=== PATIENT | male | born 1955 | race Caucasian/White ===

== ENCOUNTER 2018-12-31 09:44 | Outpatient (REF) | payer BC, SELFPAY ==
[2018-12-31 21:47] LABS: Absolute Basophil Count 0.02 k/cumm (0.0-0.2); Absolute Eosinophil Count 0.09 k/cumm (0.0-0.7); Absolute Lymphocyte Count 1.05 k/cumm (1.2-3.4); Absolute Monocyte Count 0.69 k/cumm (0.11-0.7); Absolute Neutrophil Count 3.96 k/cumm (1.2-6.7); Basophils % 0.3; Eosinophils % 1.5; HCT 42.8 % (40.0-50.0); HGB 14.6 g/dL (13.5-17.5); Lymphocytes % 18.1; Mean Corp. HGB Concentration 34.1 g/dL (32.0-36.0); Mean Corpuscular Volume 93.9 fL (80-95); Mean Platelet Volume 10.7 fL (8.0-11.0); Monocytes % 11.9; Neutrophils % 68.2; Platelet Count 269 x1000/uL (130-400); RBC 4.56 m/cumm (4.50-6.00); RBC Distribution Width 12.5 % (11.8-14.1); White Blood Cell Count 5.81 k/cumm (4.4-10.8)
[2018-12-31 22:14] LABS: ALT 38 U/L (12-78); AST 33 U/L (15-37); Albumin 3.8 g/dL (3.4-5.0); Alkaline Phosphatase 82 U/L (46-116); Anion Gap 9.6 mmol/L (3-11); BUN 14 mg/dL (7-18); Bilirubin, Total 0.5 mg/dL (0.2-1.0); CO2 25.4 mmol/L (21.0-32.0); CREATININE 0.91 mg/dL (0.70-1.30); Calcium 9.6 mg/dL (8.5-10.1); Chloride 104 mmol/L (98-107); Cholesterol 205 mg/dL (50-200); Glucose 93 mg/dL (70-100); HDL Cholesterol 48 mg/dL (40-60); LDL CHOLESTEROL 132 mg/dL (<100); Potassium 4.3 mmol/L (3.5-5.1); Sodium 139 mmol/L (136-145); TSH (W/Ref FT4) 1.76 uIU/mL (0.358-3.74); Total Protein 6.6 g/dL (6.4-8.2); Triglyceride 104 mg/dL (30-150)
== END 2018-12-31 10:04 ==
LOC: NCHCN 09:44
PROVIDERS: PCP Family Medicine; Visit Provider Family Medicine
DX: R10.33 Periumbilical pain (principal); Z00.00 Encounter for general adult medical examination without abnormal findings; Z12.5 Encounter for screening for malignant neoplasm of prostate; Z13.29 Encounter for screening for other suspected endocrine disorder; Z80.42 Family history of malignant neoplasm of prostate
CPT/HCPCS: 80053; 80061; 83721; 84153; 84443; 85025

== ENCOUNTER 2019-05-25 08:52 | Outpatient (REF) | payer BC, SELFPAY ==
[2019-05-25 22:23] LABS: Calculated LDL 110 mg/dL; Cholesterol 172 mg/dL (50-200); HDL Cholesterol 42 mg/dL (40-60); Triglyceride 100 mg/dL (30-150)
== END 2019-05-25 09:12 ==
LOC: NCHCN 08:52
PROVIDERS: PCP Family Medicine; Visit Provider Family Medicine
DX: E78.9 Disorder of lipoprotein metabolism, unspecified (principal); Z14.8 Genetic carrier of other disease
CPT/HCPCS: 80061

== ENCOUNTER 2020-01-05 08:55 | Outpatient (REF) | payer BC, SELFPAY ==
[2020-01-05 20:53] LABS: ALT 28 U/L (16-63); AST 24 U/L (15-37); Albumin 3.8 g/dL (3.4-5.0); Alkaline Phosphatase 79 U/L (46-116); Anion Gap 2.7 mmol/L (3-11); BUN 15 mg/dL (7-18); Bilirubin, Total 0.5 mg/dL (0.2-1.0); CO2 31.3 mmol/L (21.0-32.0); CREATININE 1.07 mg/dL (0.70-1.30); Calcium 9.7 mg/dL (8.5-10.1); Chloride 105 mmol/L (98-107); Glucose 100 mg/dL (74-106); Potassium 4.1 mmol/L (3.5-5.1); Sodium 139 mmol/L (136-145); Total Protein 6.6 g/dL (6.4-8.2)
[2020-01-05 21:29] LABS: Calculated LDL 116 mg/dL (<100); Cholesterol 186 mg/dL (<200); HDL Cholesterol 53 mg/dL (40-60); Triglyceride 86 mg/dL (<150)
[2020-01-07 12:15] LABS: PSA, Screening 1.8 ng/mL (0.0-4.5)
== END 2020-01-05 09:15 ==
LOC: NCHCN 08:55
PROVIDERS: PCP Family Medicine; Visit Provider Nurse Practitioner Family
DX: Z00.00 Encounter for general adult medical examination without abnormal findings (principal); E78.9 Disorder of lipoprotein metabolism, unspecified; Z12.5 Encounter for screening for malignant neoplasm of prostate
CPT/HCPCS: 80053; 80061; 84153

== ENCOUNTER 2021-01-17 08:59 | Outpatient (REF) | payer BC, SELFPAY ==
[2021-01-17 13:30] LABS: HCT 44.1 % (40.0-50.0); HGB 15.1 g/dL (13.5-17.5); MCH 32.1 pg (27.0-33.0); MCHC 34.2 % (32.0-36.0); MCV 93.6 fL (80-95); MPV 10.8 fL (8.0-11.0); Platelet Count 268 10^3/uL (130-400); RBC 4.71 10^6/uL (4.36-5.78); RDW 12.3 % (11.8-14.1); RDW-SD 42.6 fL; WBC 4.97 10^3/uL (4.4-10.8)
[2021-01-17 13:36] LABS: ALT 33 U/L (16-63); AST 23 U/L (15-37); Albumin 3.8 g/dL (3.4-5.0); Alkaline Phosphatase 85 U/L (46-116); Anion Gap 9.3 mmol/L (3-11); BUN 17 mg/dL (7-18); Bilirubin, Total 0.4 mg/dL (0.2-1.0); CO2 26.7 mmol/L (21.0-32.0); CREATININE 1.2 mg/dL (0.70-1.30); Calcium 9.7 mg/dL (8.5-10.1); Calculated LDL 137 mg/dL (<100); Chloride 106 mmol/L (98-107); Cholesterol 204 mg/dL (<200); Glucose 105 mg/dL (74-106); HDL Cholesterol 50 mg/dL (40-60); Potassium 4.3 mmol/L (3.5-5.1); Sodium 142 mmol/L (136-145); Total Protein 6.6 g/dL (6.4-8.2); Triglyceride 85 mg/dL (<150)
[2021-01-17 22:43] LABS: PSA, Screening 1.9 ng/mL (0.0-4.5)
[2021-01-18 11:16] LABS: HIV-1/2 Ag & Ab Screen Negative (Negative)
[2021-01-18 13:25] LABS: Hepatitis C Ab w Rflx HCV PCR Negative (Negative)
== END 2021-01-17 09:00 | disposition home or self-care (01) ==
LOC: NCHCN 08:59
PROVIDERS: PCP Family Medicine; Visit Provider Nurse Practitioner Family
DX: Z00.00 Encounter for general adult medical examination without abnormal findings (principal); E78.5 Hyperlipidemia, unspecified; Z11.4 Encounter for screening for human immunodeficiency virus [HIV]; Z11.59 Encounter for screening for other viral diseases; Z14.8 Genetic carrier of other disease; Z12.5 Encounter for screening for malignant neoplasm of prostate
CPT/HCPCS: 80053; 80061; 84153; 85027; 86803; 87389

== ENCOUNTER 2021-01-26 09:07 | Outpatient (REF) | payer BC, SELFPAY ==
--- NOTE | 2021-01-26 08:00 | SKI_PTH ---
PATIENT: Shine Jorge LOC: [facility] U#:[id number] AGE/SX: 65/M ROOM: RE01/26/[address]: Faina Khanna : 1955 BED: DIS: 01/26/2021 SPEC #: [id number] RECD: 01/26/21 12:39 STATUS: RIGO REMavis #: [id number] MERVAT: 01/26/21 08:[address]: Faina Khanna DEPT: Surgical Specimen RECD BY: Gita Flynn ENTERED: 01/26/21 12:40 SP TYPE: TITI DURAND DR: Prem Zabala Tissues: 1 - SKIN BIOPSY(SHAVE/PUNCH) Procedures: SKIN LEVEL 4 Comments: [id number]
== END 2021-01-26 09:08 | disposition home or self-care (01) ==
LOC: NCHCN 09:07
PROVIDERS: PCP Family Medicine; Visit Provider Nurse Practitioner Family
DX: L57.0 Actinic keratosis (principal)
CPT/HCPCS: 88305

== ENCOUNTER 2021-09-08 12:01 | Outpatient (REF) | payer BC, SELFPAY ==
--- NOTE | 2021-09-08 07:45 | SKI_PTH ---
PATIENT: Shine Jorge LOC: [facility] U#:[id number] AGE/SX: 65/M ROOM: RE09/08/[address]: Danica Barbosa : 1955 BED: DIS: 09/08/2021 SPEC #: [id number] RECD: 09/08/21 16:48 STATUS: RIGO REMavis #: [id number] MERVAT: 09/08/21 07:[address]: Danica Barbosa DEPT: Surgical Specimen RECD BY: Gita Flynn ENTERED: 09/08/21 16:48 SP TYPE: TITI DURAND DR: Prem Zabala Tissues: 1 - SKIN BIOPSY(SHAVE/PUNCH) Procedures: SKIN LEVEL 4 Comments: [id number]
== END 2021-09-08 12:02 | disposition home or self-care (01) ==
LOC: LBN 12:01
PROVIDERS: PCP Family Medicine; Visit Provider Nurse Practitioner Family
DX: L82.0 Inflamed seborrheic keratosis (principal)
CPT/HCPCS: 88305

== ENCOUNTER 2022-01-18 08:28 | Outpatient (REF) | payer BC, SELFPAY ==
[2022-01-18 17:25] LABS: ALT 23 U/L (16-63); Albumin 4.2 g/dL (3.4-5.0); Alkaline Phosphatase 100 U/L (46-116); Anion Gap 8.1 mmol/L (3-11); BUN 15 mg/dL (7-18); Bilirubin, Total 0.4 mg/dL (0.2-1.0); CO2 27.9 mmol/L (21.0-32.0); CREATININE 1.1 mg/dL (0.70-1.30); Calcium 9.8 mg/dL (8.5-10.1); Calculated LDL 124 mg/dL (<100); Chloride 103 mmol/L (98-107); Cholesterol 193 mg/dL (<200); Glucose 96 mg/dL (74-106); HDL Cholesterol 55 mg/dL (40-60); Potassium 4.1 mmol/L (3.5-5.1); Sodium 139 mmol/L (136-145); Total Protein 7.3 g/dL (6.4-8.2); Triglyceride 72 mg/dL (<150)
[2022-01-18 17:36] LABS: AST 20 U/L (15-37)
[2022-01-18 22:59] LABS: PSA, Screening 2.3 ng/mL (<=4.5)
== END 2022-01-18 08:29 | disposition home or self-care (01) ==
LOC: NCHCN 08:28
PROVIDERS: PCP Nurse Practitioner Family; Visit Provider Nurse Practitioner Family
DX: Z00.00 Encounter for general adult medical examination without abnormal findings (principal); F17.210 Nicotine dependence, cigarettes, uncomplicated; Z82.49 Family history of ischemic heart disease and other diseases of the circulatory system; Z80.42 Family history of malignant neoplasm of prostate; Z12.5 Encounter for screening for malignant neoplasm of prostate; E78.5 Hyperlipidemia, unspecified
CPT/HCPCS: 80053; 80061; 84153

== ENCOUNTER 2023-01-17 09:35 | Outpatient (REF) | payer MEDICARE, SELFPAY ==
[2023-01-17 16:18] LABS: ALT 27 U/L (16-63); AST 29 U/L (15-37); Albumin 3.9 g/dL (3.4-5.0); Alkaline Phosphatase 71 U/L (46-116); Anion Gap 6.8 mmol/L (3-11); BUN 14 mg/dL (7-18); Bilirubin, Total 0.5 mg/dL (0.2-1.0); CO2 25.2 mmol/L (21.0-32.0); Calcium 9.9 mg/dL (8.5-10.1); Calculated LDL 121 mg/dL (<100); Chloride 106 mmol/L (98-107); Cholesterol 191 mg/dL (<200); Estimated GFR 82.49 (mL/min/1.73m2); Glucose 93 mg/dL (74-106); HDL Cholesterol 54 mg/dL (40-60); Potassium 4.6 mmol/L (3.5-5.1); Sodium 138 mmol/L (136-145); Triglyceride 80 mg/dL (<150)
[2023-01-18 21:31] LABS: PSA, Screening 1.7 ng/mL (<=4.5)
== END 2023-01-17 09:36 | disposition home or self-care (01) ==
LOC: NCHCN 09:35
PROVIDERS: PCP Nurse Practitioner Family; Visit Provider Nurse Practitioner Family
DX: E78.5 Hyperlipidemia, unspecified (principal); Z12.5 Encounter for screening for malignant neoplasm of prostate
CPT/HCPCS: 80053; 80061; 84153

== ENCOUNTER 2024-03-20 17:29 | Outpatient (REF) | payer MEDICARE, SELFPAY ==
[2024-03-18 21:33] LABS: HGB 14.3 g/dL (13.5-17.5); MCH 33.2 pg (27.0-33.0); MCHC 34.9 % (32.0-36.0); MCV 95 fL (80-95); Platelet Count 261 10^3/uL (130-400); RBC 4.31 10^6/uL (4.36-5.78); RDW-SD 42.6 fL
[2024-03-18 22:09] LABS: ALT 29 U/L (16-63); AST 26 U/L (15-37); Alkaline Phosphatase 80 U/L (46-116); BUN 17 mg/dL (7-18); Bilirubin, Total 0.27 mg/dL (0.2-1.0); CREATININE 1.1 mg/dL (0.70-1.30); Calcium 10.9 mg/dL (8.5-10.1); Calculated LDL 96 mg/dL (<100); Cholesterol 187 mg/dL (<200); Estimated GFR 73.12 (mL/min/1.73m2); Glucose 95 mg/dL (74-106); HDL Cholesterol 70 mg/dL (40-60); Total Protein 7.1 g/dL (6.4-8.2); Triglyceride 108 mg/dL (<150)
[2024-03-18 22:35] LABS: Chloride 101 mmol/L (98-107); Potassium 4.1 mmol/L (3.5-5.1); Sodium 135 mmol/L (136-145)
[2024-03-19 20:52] LABS: PSA, Screening 2.3 ng/mL (<=4.5)
== END 2024-03-20 17:30 | disposition home or self-care (01) ==
LOC: NCHCN 17:29
PROVIDERS: PCP Nurse Practitioner Family; Visit Provider Nurse Practitioner Family
DX: E78.5 Hyperlipidemia, unspecified (principal); Z12.5 Encounter for screening for malignant neoplasm of prostate; Z14.8 Genetic carrier of other disease; Z80.42 Family history of malignant neoplasm of prostate
CPT/HCPCS: 80053; 80061; 84153; 85027

== ENCOUNTER 2025-03-23 17:07 | Outpatient (REF) | payer MEDICARE, SELFPAY ==
[2025-03-23 20:55] LABS: Anion Gap 5.8 mmol/L (3-11); BUN 14 mg/dL (7-18); CO2 28.2 mmol/L (21.0-32.0); Calcium 11.2 mg/dL (8.5-10.1); Chloride 104 mmol/L (98-107); Estimated GFR 81.47 (mL/min/1.73m2); Glucose 92 mg/dL (74-106); Potassium 4.2 mmol/L (3.5-5.1); Sodium 138 mmol/L (136-145)
[2025-03-24 11:20] LABS: Calculated LDL 118 mg/dL (<100); Cholesterol 195 mg/dL (<200); HDL Cholesterol 57 mg/dL (>or=40); Triglyceride 100 mg/dL (<150)
[2025-03-24 18:08] LABS: PSA, Screening 2.7 ng/mL (<=4.5)
== END 2025-03-23 17:08 | disposition home or self-care (01) ==
LOC: NCHCN 17:07
PROVIDERS: PCP Nurse Practitioner Family; Visit Provider Nurse Practitioner Family
DX: E78.5 Hyperlipidemia, unspecified (principal); Z12.5 Encounter for screening for malignant neoplasm of prostate; Z00.00 Encounter for general adult medical examination without abnormal findings
CPT/HCPCS: 80048; 80061; 84153

== ENCOUNTER 2025-05-27 12:09 | Outpatient (REF) | payer MEDICARE, SELFPAY ==
[2025-05-27 15:39] LABS: ALT 32 U/L (16-63); AST 24 U/L (15-37); Albumin 3.9 g/dL (3.4-5.0); Alkaline Phosphatase 79 U/L (46-116); Anion Gap 12.1 mmol/L (3-11); BUN 13 mg/dL (7-18); Bilirubin, Total 0.7 mg/dL (0.2-1.0); CO2 20.9 mmol/L (21.0-32.0); Calcium 10.0 mg/dL (8.5-10.1); Chloride 102 mmol/L (98-107); Estimated GFR 81.47 (mL/min/1.73m2); Glucose 141 mg/dL (74-106); Potassium 4.2 mmol/L (3.5-5.1); Sodium 135 mmol/L (136-145); Total Protein 7.2 g/dL (6.4-8.2); Vitamin D 25 Total 17 ng/mL (30-100)
== END 2025-05-27 12:10 | disposition home or self-care (01) ==
LOC: NCHCN 12:09
PROVIDERS: PCP Nurse Practitioner Family; Visit Provider Nurse Practitioner Family
DX: E83.52 Hypercalcemia (principal)
CPT/HCPCS: 80053; 82306; 83970